=== PATIENT | male | born 1980 | race Caucasian/White ===

== ENCOUNTER → 2024-03-23 | Outpatient (CLI) | payer OTHER | LOC: M RAD 15:30 | PROVIDERS: ATTEND Physician Assistant | DX: J98.6 Disorders of diaphragm (principal) ==

== ENCOUNTER → 2024-05-05 | Outpatient (CLI) | payer OTHER ==
[~2024-05-05] MED LIST: E-Z-GAS II EFFERVESCENT PACKET (SODIUM BICARB./CITRIC ACID/SIMETHICONE) As Ordered ONE; E-Z-HD 98% w/w 340GM SUSP BTL As Ordered ONE; E-Z-PAQUE 96% w/w SUSP 176GM BTL As Ordered ONE
== END ==
LOC: M RAD 07:44
PROVIDERS: ATTEND Physician Assistant
DX: R12 Heartburn (principal)